=== PATIENT | female | born 1955 | race Caucasian/White ===

== ENCOUNTER 2021-01-13 06:04 | Day surgery (SDC) | payer OTHER ==
[~2021-01-13] VITALS: Ht 167.6 cm; Wt 71.0 kg
[~2021-01-13 06:04] MED LIST: CALC500T30 PO; FEXO180T81 PO; HYDROmorphone 2 MG/ML VIAL IVP PRN; IV RINGERS,LACTATED 1000ML 1,000 ML IV SCH; LISI10TA16 PO; MELO15TA6 PO; MORPHINE SULFATE 2 MG/ML INJ. IVP PRN; MULT-245 PO; PROCHLORPERAZINE 10 MG/2 ML VIAL. IVP PRN; SOY1TABL2 PO; ceFAZolin SODIUM IV Push 1 GM VIAL. IVP PRN; fentaNYL PF VIAL 100 MCG/2 ML VIAL IVP PRN
[2021-01-13 06:31] VITALS: BP 174/80
[2021-01-13] MEDS ORDERED: SEVOFLURANE 31 TO 60 MINUTES. IH ONE (07:01)
[2021-01-13] MEDS ORDERED: DEXAMETHASONE SOD PHOS 4 MG/ML VIAL ONE (07:01)
[2021-01-13] MEDS ORDERED: PROPOFOL 10 MG/ML (20ML) VIAL. IV ONE (07:01)
[2021-01-13] MEDS ORDERED: LIDOCAINE 2% PF 5 ML VIAL. ONE (07:01)
[2021-01-13] MEDS ORDERED: ONDANSETRON PF 4 MG/2 ML VIAL. ONE (07:01)
[2021-01-13] MEDS ORDERED: fentaNYL PF VIAL 100 MCG/2 ML VIAL ONE (07:27)
[2021-01-13] MEDS ORDERED: BUPIVACAINE MPF 0.5% 30 ML VIAL. ONE (07:27)
[2021-01-13] MEDS ORDERED: TRAM50TA PO (07:32)
--- NOTE | 2021-01-13 07:33 | DISCH ---
DISCHARGE INSTRUCTIONS Condition on Discharge Condition on Discharge: Stable Activity After Discharge Activity Instructions for Disc: Other, see below (Avoid extremes of wrist m otion, may do fine motor use such as eating writing and typing without restriction) Weight Bearing Status after Di: Non weight bearing Diet after Discharge Diet after Discharge: Diabetic No Calorie Level Wound Incision Care Wound/Incision Care: Ice to area for comfort, Keep wound elevated, Do not change dressing (Recommend keep dressing intact for additional support on the wrist until follow-up, may remove and change if soiled) Contacting the after DC Call your doctor for: Concerns you may have Follow-Up Follow up with: [facility] 7 to 10 days THEO MARCANO MD Jan 13, 2021 07:33
[2021-01-13 08:21] VITALS: BP 175/89
[2021-01-13] MEDS ORDERED: traMADol 50 MG TABLET PO ONE (08:45)
--- NOTE | 2021-01-13 10:08 | PDOC4 ---
Operative Note Operative Note Date of surgery: 01/13/2021 Preoperative diagnosis: Left hand dorsal ganglion cyst Postoperative diagnosis: Same with involvement of the long finger extensor tendon with intrasubstance compromise Operative procedure: Excision left hand dorsal ganglion cyst and extensor tendon repair Surgeon: Greer Assist: Jason chavez assist Anesthesia: Local with monitored anesthesia care Complications: None Estimated blood loss: 2 cc Specimens: 2 separate specimens with ganglion cyst wall sent separately from intrasubstance degradation of extensor tendon material Operative indications: Please see my preoperative clinic note for detailed operative indications and note that we expect a cystic type mass that I am going to excise and sent for pathological evaluation. There always is a possibility that the mass could be something different than we expect and therefore use the pathological evaluation as a confirmation. We talked about the possibility of infection recurrence nerve or blood vessel damage medical or other anesthetic complications including continued pain among others all her questions were answered she wishes to proceed with surgical evaluation and treatment Operative text: Patient was identified procedure verified patient placed in the supine position operating table and the left upper extremity was prepped and draped in standard sterile fashion. After timeout was performed patient procedure identified and verified the left upper extremity was exsanguinated by Esmarch bandage tourniquet inflated to 250 mmHg and local anesthetic was instilled proximal and distal to the surgical area and a longitudinal incision was made dissection carried out down to the mass which appeared to originate u nderneath the extensor tendon sheath. Dissection was carried out around the area and the wall of the cyst was excised and sent for pathologic evaluation. The extensor tendon itself was also involved with intrasubstance penetration and degradation not necessarily typical of a common ganglion cyst and had potential of other pathology for example a giant cell tumor of tendon which was separately excised and sent for pathological evaluation. After debridement of the tendon through irrigation carried out normal saline solution and tendon was repaired to address the longitudinal defect with 3-0 Vicryl suture the irrigation carried out normal saline solution subcuticular closure accomplished with buried Monocryl suture Steri-Strips and Mastisol were applied followed by sterile soft dressing. Jason chavez assist was present for the procedure assisted in patient positioning prepping draping retraction closure and dressings THEO MARCANO MD Jan 13, 2021 10:08
--- NOTE | 2021-01-14 17:07 | PATHOLOGY ---
[facility] Accession Number: [id number] . 01 Material submitted: . PART A: wrist - LEFT GANGLION CYST. Modifiers: left PART B: wrist - LEFT TENDON MASS. Modifiers: left . 01 Clinical history: . LEFT WRIST CYST EXCISION DORSUM GANGLION . 02 Diagnosis: A. Synovial and fibroadipose tissue, left dorsal wrist cyst excision: - Synovial cyst showing focal proliferative changes and mild chronic inflammation. . B. Segments of tenosynovial tissue, excision: - Focal degenerative changes with fibrinous material. (JPM/db; 01/14/2021) LBQ 01/14/2021 1619 Local . 02 Electronically signed: . Willie Vizcarra MD, Pathologist NPI- [id number] . 01 Gross description: . A. The specimen is received in formalin, labeled "Northup, Marsha J and left ganglion cyst". It consists of 2 white-moody, irregular soft tissue fragments measuring 2.0 and 2.4 cm. The specimen is entirely submitted in A1. . B. The specimen is received in formalin, labeled "Northup, Marsha J and left tendon mass?". It consists of multiple white irregular soft tissue fragments ranging from 0.2-1.0 cm in greatest dimension. The specimen is entirely submitted between sponges in B1. MFE/MFE 01/13/2021 2017 Local . 02 Pathologist provided ICD-10: M65.832 . 02 CPT . 455988, [id number] Specimen Comment: A courtesy copy of this report has been sent to [phone] Specimen Comment: Report sent to Performed at: [address], [place], [place] [id number] MD Jose Milton MD Phone: [phone] Performed at: 02 [facility] [address] [place], [place] [id number] MD Willie Vizcarra MD Phone: [phone]
== END 2021-01-13 09:10 | disposition home or self-care (01) ==
LOC: SURG 06:04
PROVIDERS: ATTEND Orthopaedic Surgery
DX: M67.442 Ganglion, left hand (principal); M65.832 Other synovitis and tenosynovitis, left forearm; I10 Essential (primary) hypertension; M19.90 Unspecified osteoarthritis, unspecified site; Z90.49 Acquired absence of other specified parts of digestive tract; Z98.890 Other specified postprocedural states; Z79.899 Other long term (current) drug therapy
CPT/HCPCS: 25111; 88304; 88305; A4364; A4930; A6402; J0690; J1100; J2405; J2704; J3010; J3490; A4452; A6452